=== PATIENT | female | born 1970 | race Caucasian/White ===

== ENCOUNTER 2023-09-07 05:20 | Day surgery (SDC) | payer OTHER ==
[2023-09-01 12:14] LABS: BASOPHILS % (AUTO) 0.5 % (0.0-2.0); EOSINOPHILS % (AUTO) 0.1 % (0.0-4.0); HEMOGLOBIN 13.6 g/dL (12.0-16.0); LYMPHOCYTES # (AUTO) 1.4 K/uL (1.0-5.5); LYMPHOCYTES % (AUTO) 21.2 % (20.5-51.5); MEAN CORPUSCULAR HEMOGLOBIN 32 pg (27-31); MEAN CORPUSCULAR HGB CONC 34 % (32-36); MEAN CORPUSCULAR VOLUME 94 fL (79.0-98.0); MONOCYTES # (AUTO) 0.5 K/uL (0.0-1.0); MONOCYTES % (AUTO) 7.1 % (1.7-9.3); NEUTROPHILS # (AUTO) 4.5 K/uL (1.8-7.7); NEUTROPHILS % (AUTO) 71.1 % (40.0-70.0); PLATELET COUNT (AUTO) 280 K/uL (130-430); RED BLOOD CELL COUNT(AUTO) 4.26 MIL/uL (4.2-6.2); RED CELL DISTRIBUTION WIDTH 11.9 % (9.0-15.0); WHITE BLOOD COUNT (AUTO) 6.4 K/uL (4.8-10.8)
[2023-09-01 12:27] LABS: CALCIUM 10.3 mg/dL (8.4-11.0); CREATININE 1.2 mg/dL (0.55-1.30); POTASSIUM 3.9 mmol/L (3.5-5.1)
[2023-09-01 12:31] LABS: INR 0.9 (0.8-1.2); PROTHROMBIN TIME 9.5 SECS (9.5-12.5)
[~2023-09-07] VITALS: Ht 180.3 cm; Wt 99.8 kg
[2023-09-07] MEDS ORDERED: ACETAMINOPHEN 500 MG TABLET ONE (05:40)
[2023-09-07] MEDS ORDERED: oxyCODONE HCL 10 MG TAB.ER.12H PO ONE ×2 (05:41→06:00)
[2023-09-07] MEDS ORDERED: GABAPENTIN 300 MG CAPSULE ONE (05:46)
[2023-09-07] MEDS ORDERED: CELECOXIB 200 MG CAPSULE ONE (05:46)
[2023-09-07] MEDS ORDERED: CELECOXIB 200 MG CAPSULE PO ONE (06:00)
[2023-09-07] MEDS ORDERED: CEFAZOLIN SOD 2 GM in D5W 50 ML IV ONE (06:00)
[2023-09-07] MEDS ORDERED: GABAPENTIN 300 MG CAPSULE PO ONE (06:00)
[2023-09-07] MEDS ORDERED: ACETAMINOPHEN 500 MG TABLET PO ONE (06:00)
[2023-09-07] MEDS ORDERED: TURM500C9 PO (07:04)
[2023-09-07] MEDS ORDERED: METO25TA3 PO (07:04)
[2023-09-07] MEDS ORDERED: [UNRECOGNIZED DRUG - CODE] PO (07:04)
[2023-09-07] MEDS ORDERED: TRAZ300T2 PO (07:04)
[2023-09-07] MEDS ORDERED: SYN75 PO (07:04)
[2023-09-07] MEDS ORDERED: MELA10TA2 PO (07:04)
[2023-09-07] MEDS ORDERED: MAGN400T10 PO (07:04)
[2023-09-07] MEDS ORDERED: LR 1,000 ML IV.SOLN IV ONE (07:15)
[2023-09-07] MEDS ORDERED: WATER FOR IRRIGATION,STERILE 1,000 ML IRRIG.SOLN IR ONE (07:15)
[2023-09-07] MEDS ORDERED: TRANEXAMIC ACID 1,000 MG/10 ML VIAL ONE (07:15)
[2023-09-07] MEDS ORDERED: BUPIVACAINE /PF 0.25% 30 ML VIAL INJ ONE (07:15)
[2023-09-07] MEDS ORDERED: NS IRRIG SOLN 1000 ML IR ONE (07:15)
[2023-09-07] MEDS ORDERED: MIDAZOLAM HCL/PF 2 MG/2 ML SYRINGE ONE (07:15)
[2023-09-07] MEDS ORDERED: DEXAMETHASONE SOD PHOSPHATE 4 MG/ML VIAL ONE (07:15)
[2023-09-07] MEDS ORDERED: PROPOFOL 200MG/ 20ML VIAL (DIPRIVAN) IV ONE (07:15)
[2023-09-07] MEDS ORDERED: ONDANSETRON HCL 4 MG/2 ML VIAL ONE (07:15)
[2023-09-07] MEDS ORDERED: NS 1000 ML IV.SOLN IV ONE (07:15)
[2023-09-07] MEDS ORDERED: VANCOMYCIN HCL 1000 MG/VIAL IV ONE (07:15)
[2023-09-07] MEDS ORDERED: MORPHINE SULFATE 10MG/10ML PF AMP ONE (07:50)
[2023-09-07] MEDS ORDERED: NALOXONE HCL 0.4 MG/ML AMP (NARCAN) IVP PRN (08:15)
[2023-09-07] MEDS ORDERED: MEPERIDINE HCL/PF 25 MG/ML DISP.SYRIN IVP PRN (08:15)
[2023-09-07] MEDS ORDERED: HYDROmorphone 1 MG/ML INJ. CARTRIDGE IVP PRN ×5 (08:15→11:00)
[2023-09-07] MEDS ORDERED: hydrALAZINE HCL 20 MG/ML VIAL IVP PRN (08:15)
[2023-09-07] MEDS ORDERED: LR 1,000 ML IV SCH (08:15)
[2023-09-07] MEDS ORDERED: METOCLOPRAMIDE HCL 10 MG/2 ML VIAL IVP PRN ×2 (08:15→09:45)
[2023-09-07] MEDS ORDERED: MIDAZOLAM HCL 2 MG/2 ML VIAL (VERSED) IVP PRN (08:15)
[2023-09-07] MEDS ORDERED: ONDANSETRON HCL 4 MG/2 ML VIAL IVP PRN ×2 (08:15→11:45)
[2023-09-07] MEDS ORDERED: DIPHENHYDRAMINE INJ 50 MG/ML VIAL IVP PRN (08:15)
[2023-09-07] MEDS ORDERED: DIPHENHYDRAMINE HCL 25 MG CAPSULE PO PRN (09:45)
[2023-09-07] MEDS ORDERED: LACTULOSE 20 GM/30 ML UDC PO PRN (09:45)
[2023-09-07] MEDS ORDERED: BISACODYL 10 MG/SUPPOSITORY RC PRN (09:45)
[2023-09-07] MEDS ORDERED: oxyCODONE HCL 5 MG TABLET PO PRN ×2 (11:00)
[2023-09-07] MEDS ORDERED: traMADol HCL HCL 50 MG TABLET (ULTRAM) PO PRN (11:00)
[2023-09-07] MEDS ORDERED: LORATADINE 10 MG TABLET PO PRN (11:00)
[2023-09-07] MEDS ORDERED: ceFAZolin SODIUM 2 GM in D5W 50 ML IV SCH (11:15)
[2023-09-07] MEDS ORDERED: ACETAMINOPHEN 500 MG TABLET PO SCH (14:00)
[2023-09-07] MEDS ORDERED: KETOROLAC TROMETHAMINE 10 MG TABLET (TORADOL) PO SCH (14:00)
[2023-09-07 14:19] VITALS: BP_SYST 138; PULSE 54; RESP 16; TEMP 97.5; O2SAT 98
[2023-09-07 16:00] VITALS: BP_SYST 130; PULSE 60; RESP 16; TEMP 97.4; O2SAT 98
[2023-09-07 18:54] VITALS: BP_SYST 107; PULSE 51; RESP 16; TEMP 97.5; O2SAT 100
[2023-09-07] MEDS ORDERED: SENNOSIDES/DOCUSATE SODIUM 1 TAB TABLET(SENOKOT-S) PO SCH (21:00)
[2023-09-08] MEDS ORDERED: ASPIRIN 81 MG TAB.CHEW PO SCH (09:00)
[2023-09-08] MEDS ORDERED: CELECOXIB 200 MG CAPSULE PO SCH (09:00)
== END 2023-09-07 19:25 | disposition home or self-care (01) ==
LOC: SMU 05:20 → SDS 05:20 → EDSTATUS 07:30 → SMU 13:30 → SDS 19:25
PROVIDERS: ATTEND Student in an Organized Health Care Education/Training Program
DX: M17.12 Unilateral primary osteoarthritis, left knee (principal); J45.909 Unspecified asthma, uncomplicated; E66.9 Obesity, unspecified; I45.10 Unspecified right bundle-branch block; E03.9 Hypothyroidism, unspecified; E78.5 Hyperlipidemia, unspecified; F41.9 Anxiety disorder, unspecified; Z68.30 Body mass index [BMI] 30.0-30.9, adult; Z79.01 Long term (current) use of anticoagulants; Z79.899 Other long term (current) drug therapy
CPT/HCPCS: 71046; 80048; 85025; 85610; 85730; 87081; 36415; 27447; 97163; 73560; 96379; 88305; 88311; 64447; J3490 ×2; J0690; J0696; J1100; J3465; J2405; J2704; J3370; J2274; J7060 ×2; J7120; J7030; C1776 ×4

== ENCOUNTER 2024-01-06 04:55 | Day surgery (SDC) | payer OTHER ==
[2023-12-30 13:35] LABS: BASOPHILS % (AUTO) 0.3 % (0.0-2.0); EOSINOPHILS % (AUTO) 0.2 % (0.0-4.0); HEMATOCRIT 39.9 % (36-48); LYMPHOCYTES # (AUTO) 1.3 K/uL (1.0-5.5); LYMPHOCYTES % (AUTO) 27.4 % (20.5-51.5); MEAN CORPUSCULAR HEMOGLOBIN 33 pg (27-31); MEAN CORPUSCULAR HGB CONC 35 % (32-36); MEAN CORPUSCULAR VOLUME 94 fL (79.0-98.0); MONOCYTES # (AUTO) 0.4 K/uL (0.0-1.0); MONOCYTES % (AUTO) 8.6 % (1.7-9.3); NEUTROPHILS % (AUTO) 63.5 % (40.0-70.0); PLATELET COUNT (AUTO) 250 K/uL (130-430); RED BLOOD CELL COUNT(AUTO) 4.25 MIL/uL (4.2-6.2); RED CELL DISTRIBUTION WIDTH 12.2 % (9.0-15.0); WHITE BLOOD COUNT (AUTO) 4.7 K/uL (4.8-10.8)
[2023-12-30 13:51] LABS: PROTHROMBIN TIME 10.2 SECS (9.5-12.5)
[2023-12-30 13:53] LABS: ALBUMIN 3.7 g/dL (3.4-4.8); CALCIUM 9.4 mg/dL (8.4-11.0); CREATININE 1.34 mg/dL (0.55-1.30); POTASSIUM 4.3 mmol/L (3.5-5.1); TOTAL BILIRUBIN 0.6 mg/dL (0.0-1.0); TOTAL PROTEIN, SERUM 8.3 g/dL (6.4-8.3)
[~2024-01-06] VITALS: Ht 180.3 cm; Wt 93.9 kg
[~2024-01-06 04:55] MED LIST: MAGN400T10 PO; MELA10TA2 PO; METO25TA3 PO; SYN75 PO; TRAZ300T2 PO; TURM500C9 PO; [UNRECOGNIZED DRUG - CODE] PO
[2024-01-06] MEDS ORDERED: CELECOXIB 100 MG CAPSULE ONE (05:07)
[2024-01-06] MEDS ORDERED: ACETAMINOPHEN 500 MG TABLET ONE (05:08)
[2024-01-06] MEDS ORDERED: SCOPOLAMINE HYDROBROMIDE 1 MG PATCH .72 H (TRANSDERM-SCOP) TD ONE (05:08)
[2024-01-06] MEDS ORDERED: oxyCODONE HCL 10 MG TAB.ER.12H PO ONE (05:09)
[2024-01-06] MEDS ORDERED: GABAPENTIN 300 MG CAPSULE ONE (05:09)
[2024-01-06] MEDS: SCOPOLAMINE HYDROBROMIDE 1 MG PATCH .72 H (TRANSDERM-SCOP) TD ONE (05:29)
[2024-01-06] MEDS: ACETAMINOPHEN 500 MG TABLET PO ONE (05:29)
[2024-01-06] MEDS: GABAPENTIN 300 MG CAPSULE PO ONE (05:29)
[2024-01-06] MEDS: CELECOXIB 100 MG CAPSULE PO ONE (05:29)
[2024-01-06] MEDS ORDERED: LACTULOSE 20 GM/30 ML UDC PO PRN (07:00)
[2024-01-06] MEDS ORDERED: METOCLOPRAMIDE HCL 10 MG/2 ML VIAL IVP PRN (07:00)
[2024-01-06] MEDS ORDERED: CEFAZOLIN SOD 2 GM in D5W 50 ML IV ONE (07:00)
[2024-01-06] MEDS ORDERED: DIPHENHYDRAMINE HCL 25 MG CAPSULE PO PRN (07:00)
[2024-01-06] MEDS ORDERED: BISACODYL 10 MG/SUPPOSITORY RC PRN (07:00)
[2024-01-06] MEDS ORDERED: VANCOMYCIN HCL 1000 MG/VIAL IV ONE (07:01)
[2024-01-06] MEDS ORDERED: NS IRRIG SOLN 1000 ML IR ONE (07:01)
[2024-01-06] MEDS ORDERED: TRANEXAMIC ACID 1,000 MG/10 ML VIAL ONE (07:01)
[2024-01-06] MEDS ORDERED: LR 1,000 ML IV.SOLN IV ONE (07:01)
[2024-01-06] MEDS ORDERED: WATER FOR IRRIGATION,STERILE 1,000 ML IRRIG.SOLN IR ONE (07:01)
[2024-01-06] MEDS: oxyCODONE HCL 10 MG TAB.ER.12H PO ONE (07:01)
[2024-01-06] MEDS ORDERED: BUPIVACAINE /DEX PF 0.75% SPINAL 2 ML AMP INJ ONE (07:01)
[2024-01-06] MEDS ORDERED: MIDAZOLAM HCL 2 MG/2 ML VIAL (VERSED) ONE (07:03)
[2024-01-06] MEDS ORDERED: PROPOFOL DRIP 100 ML IV ONE ×2 (07:03→08:16)
[2024-01-06] MEDS ORDERED: LORATADINE 10 MG TABLET PO PRN (11:00)
[2024-01-06] MEDS ORDERED: HYDROmorphone 1 MG/ML INJ. CARTRIDGE IVP PRN ×6 (11:00→14:00)
[2024-01-06] MEDS ORDERED: traMADol HCL HCL 50 MG TABLET (ULTRAM) PO PRN (11:00)
[2024-01-06] MEDS ORDERED: oxyCODONE HCL 5 MG TABLET PO PRN (11:00)
[2024-01-06] MEDS ORDERED: ONDANSETRON HCL 4 MG/2 ML VIAL ONE (11:17)
[2024-01-06] MEDS: ONDANSETRON HCL 4 MG/2 ML VIAL IVP PRN (11:30)
[2024-01-06] MEDS ORDERED: ONDANSETRON HCL 4 MG/2 ML VIAL IVP PRN (11:45)
[2024-01-06 12:22] VITALS: BP_SYST 120; PULSE 56; RESP 18; TEMP 97.5; O2SAT 100
[2024-01-06] MEDS ORDERED: TAMSULOSIN HCL 0.4 MG CAP PO ONE (14:00)
[2024-01-06] MEDS ORDERED: NALOXONE HCL 0.4 MG/ML AMP (NARCAN) IVP PRN (14:00)
[2024-01-06] MEDS ORDERED: ACETAMINOPHEN 500 MG TABLET PO SCH (14:00)
[2024-01-06] MEDS ORDERED: hydrALAZINE HCL 20 MG/ML VIAL IV PRN (14:00)
[2024-01-06] MEDS: oxyCODONE HCL 5 MG TABLET PO PRN (14:20)
[2024-01-06] MEDS ORDERED: KETOROLAC TROMETHAMINE 10 MG TABLET (TORADOL) PO SCH (17:00)
[2024-01-06] MEDS ORDERED: SENNOSIDES/DOCUSATE SODIUM 1 TAB TABLET(SENOKOT-S) PO SCH (21:00)
[2024-01-07] MEDS ORDERED: MIDAZOLAM HCL 2 MG/2 ML VIAL (VERSED) ONE (07:38)
[2024-01-07] MEDS ORDERED: PROPOFOL DRIP 0 ML IV ONE ×2 (07:39→08:56)
[2024-01-07] MEDS ORDERED: ASPIRIN 81 MG TAB.CHEW PO SCH (09:00)
[2024-01-07] MEDS ORDERED: TAMSULOSIN HCL 0.4 MG CAP PO SCH (09:00)
[2024-01-07] MEDS ORDERED: CELECOXIB 200 MG CAPSULE PO SCH (11:00)
== END 2024-01-06 15:35 | disposition home or self-care (01) ==
LOC: SMU 04:55 → SDS 04:55
PROVIDERS: ATTEND Student in an Organized Health Care Education/Training Program
DX: M17.11 Unilateral primary osteoarthritis, right knee (principal); I10 Essential (primary) hypertension; F41.9 Anxiety disorder, unspecified; E03.9 Hypothyroidism, unspecified; E78.5 Hyperlipidemia, unspecified; K21.9 Gastro-esophageal reflux disease without esophagitis; G89.29 Other chronic pain; E66.3 Overweight; Z90.710 Acquired absence of both cervix and uterus; Z96.652 Presence of left artificial knee joint; Z98.890 Other specified postprocedural states; Z79.899 Other long term (current) drug therapy; Z68.28 Body mass index [BMI] 28.0-28.9, adult
CPT/HCPCS: 80053; 85025; 85610; 85730; 87081; 36415; 71046; 27447; 64447; 73560; 97110; 97530; 97116; 97162; 88305; 88311; J3490 ×2; J0690; J0696; J3465; J2405; J2704; J3370; J7060 ×2; J7120; C1713 ×2; C1776 ×2; 96379